=== PATIENT | female | born 1945 | race Caucasian/White ===

== ENCOUNTER → 2022-02-14 10:03 | Outpatient (BNVA) | payer MEDICARE, OTHER, SELFPAY | PROVIDERS: Referring Provider Nurse Practitioner Family; Visit Provider Podiatrist Foot & Ankle Surgery | DX: B35.1 Tinea unguium (principal) | CPT/HCPCS: 99203 ==

== ENCOUNTER → 2022-03-12 12:52 | Outpatient (BNVA) | payer MEDICARE, OTHER, SELFPAY | PROVIDERS: Visit Provider Podiatrist Foot & Ankle Surgery | DX: B35.1 Tinea unguium (principal); L60.0 Ingrowing nail | CPT/HCPCS: 11730; 11750; 99213 ==

== ENCOUNTER 2022-04-09 08:54 | Outpatient (CLI) | payer MEDICARE, OTHER, SELFPAY ==
--- NOTE | 2022-04-09 09:00 | MM_ITS ---
WS: [id number] BILATERAL SCREENING DIGITAL TOMOSYNTHESIS MAMMOGRAM WITH CAD HISTORY: SCREENING COMPARISON: 03/07/2020 and 08/12/2018 Bilateral CC and MLO views with tomosynthesis and synthetic mammography submitted. Computer aided det ection analyzed. Breast composition: There are scattered areas of fibroglandular density. No suspicious masses, microc alcifications or architectural distortion. Stable fibroglandular pattern. Benign breast arterial calc ifications. MM/[place] [id number] IMPRESSION: BI-RADS: 2-Benign FOLLOW UP: 1 Year Follow-up
== END 2022-04-09 08:55 | disposition home or self-care (01) ==
LOC: RAD 08:54
PROVIDERS: Visit Provider Family Medicine
DX: Z12.31 Encounter for screening mammogram for malignant neoplasm of breast (principal)
CPT/HCPCS: 77063; 77067

== ENCOUNTER → 2023-09-15 11:52 | Outpatient (BNVA) | payer MEDICARE, OTHER, SELFPAY | PROVIDERS: PCP Family Medicine; Referring Provider Family Medicine; Visit Provider Internal Medicine Cardiovascular Disease | DX: R00.1 Bradycardia, unspecified (principal); I49.8 Other specified cardiac arrhythmias; I25.118 Atherosclerotic heart disease of native coronary artery with other forms of angina pectoris; I12.9 Hypertensive chronic kidney disease with stage 1 through stage 4 chronic kidney disease, or unspecified chronic kidney disease; E78.5 Hyperlipidemia, unspecified; E03.9 Hypothyroidism, unspecified; N18.31 Chronic kidney disease, stage 3a; R94.31 Abnormal electrocardiogram [ECG] [EKG] | CPT/HCPCS: 93005; 99204 ==

== ENCOUNTER → 2023-10-10 10:05 | Outpatient (BNVA) | payer MEDICARE, OTHER, SELFPAY | PROVIDERS: PCP Family Medicine; Visit Provider Clinical Nurse Specialist Adult Health | DX: J06.9 Acute upper respiratory infection, unspecified (principal) | CPT/HCPCS: 87400 ==

== ENCOUNTER → 2023-11-26 07:30 | Outpatient (BNVA) | payer MEDICARE, OTHER, SELFPAY | PROVIDERS: PCP Family Medicine; Visit Provider Family Medicine | DX: N18.31 Chronic kidney disease, stage 3a (principal); E03.9 Hypothyroidism, unspecified; E78.5 Hyperlipidemia, unspecified | CPT/HCPCS: 80053; 80061; 84443 ==

== ENCOUNTER → 2024-03-16 10:05 | Outpatient (BNVA) | payer MEDICARE, OTHER, SELFPAY | PROVIDERS: PCP Family Medicine; Visit Provider Internal Medicine Cardiovascular Disease | DX: I25.10 Atherosclerotic heart disease of native coronary artery without angina pectoris (principal); I10 Essential (primary) hypertension; E78.5 Hyperlipidemia, unspecified; E03.9 Hypothyroidism, unspecified | CPT/HCPCS: 99214 ==

== ENCOUNTER → 2024-03-30 07:54 | Outpatient (BNVA) | payer MEDICARE, OTHER, SELFPAY | PROVIDERS: PCP Family Medicine; Referring Provider Nurse Practitioner Family; Visit Provider Nurse Practitioner Family | DX: L71.0 Perioral dermatitis (principal); L57.0 Actinic keratosis; L82.0 Inflamed seborrheic keratosis; L30.4 Erythema intertrigo; S50.901A Unspecified superficial injury of right elbow, initial encounter; X58.XXXA Exposure to other specified factors, initial encounter; I83.93 Asymptomatic varicose veins of bilateral lower extremities | CPT/HCPCS: 17000; 17110; 99203 ==

== ENCOUNTER 2024-06-10 14:06 | Outpatient (CLI) | payer MEDICARE, OTHER, SELFPAY ==
--- NOTE | 2024-06-10 14:13 | USR_ITS ---
PROCEDURE INFORMATION: Exam: US Soft Tissue Head and Neck, Thyroid Exam date and time: 06/10/2024 2:34 PM Age: 79 years old Clinical indication: Condition or disease; Other: Nodule; Additional info: Thyroid nodule TECHNIQUE: Imaging protocol: Real-time ultrasound scan of the neck with image documentation. Exam focused on the thyroid. COMPARISON: No relevant prior studies available. FINDINGS: The right lobe measures 4.5 x 1.4 x 1.4 cm. The left lobe measures 2.5 x 1.1 x 1.4 cm. The isthmus measures about 2 mm. There is a very questionable isoechoic nodular focus in the upper midpole region of the right lobe with a tiny anechoic focus on the margin which could represent a cyst. It is uncertain whether this represents a true nodule or just lobular thyroid tissue. It has poorly defined margins. It measures 0.9 x 0.9 x 0.6 cm. Otherwise unremarkable exam. US/US thyroid [id number] IMPRESSION: Benign-appearing nodular isoechoic focus in the right lobe as described above. This may not represent a true nodule.
== END 2024-06-10 14:07 | disposition home or self-care (01) ==
LOC: RAD 14:10
PROVIDERS: PCP Family Medicine; Visit Provider Family Medicine
DX: E04.1 Nontoxic single thyroid nodule (principal); R93.89 Abnormal findings on diagnostic imaging of other specified body structures
CPT/HCPCS: 76536

== ENCOUNTER → 2024-09-14 08:36 | Outpatient (BNVA) | payer MEDICARE, OTHER, SELFPAY | PROVIDERS: PCP Family Medicine; Visit Provider Nurse Practitioner Family | DX: I12.9 Hypertensive chronic kidney disease with stage 1 through stage 4 chronic kidney disease, or unspecified chronic kidney disease (principal); N18.9 Chronic kidney disease, unspecified; E78.5 Hyperlipidemia, unspecified; E03.9 Hypothyroidism, unspecified; G25.0 Essential tremor; Z79.01 Long term (current) use of anticoagulants; Z95.5 Presence of coronary angioplasty implant and graft | CPT/HCPCS: 99214 ==

== ENCOUNTER 2024-10-21 10:20 | Outpatient (CLI) | payer MEDICARE, OTHER, SELFPAY ==
--- NOTE | 2024-10-21 | ECG_ITS ---
[facility] 2024[facility]21 Pat Name: Suzie Muir Department: Room: Gender: Female Information Systems Manager: : 1945 Requested By: Goyo James Order Number: [id number] Ho MD: SHAKEEL FLAHERTY Interpretive Statements Lung unchanged pre/post procedure; Intraprocedure shortess of breath; Symptoms resoled by discharge NOTE: Please note that this is the electrocardiogram portion of the Lexiscan/Sestamibi stress test. The perfusion scan will be documented separately. DATA: Baseline heart rate was 58 beats per minute. Baseline blood pressure was 144/81 millimeters of mercury. Target heart rate was 142. Maximum heart rate achieved was 103. which was 72% of the predicted target heart rate. Maximum blood pressure was 144/81 millimeters of mercury. The reason for ending the test was completion of the protocol. The patient did not experience any symptoms. ELECTROCARDIOGRAM: BASELINE: Sinus rhythm. Normal axis. Otherwise, no ST-T changes suggestive of ischemia noted. No arrhythmia noted. EXERCISE: After Lexiscan injection, no ST-T changes suggestive of ischemic noted. No arrhythmia noted. CONCLUSION: Please note due to baseline abnormality of the EKG specificity and sensitivity of the EKG portion of LexiScan MIBI stress test will be low 1. EKG not suggestive of ischemia 2. Lexiscan injection unremarkable. 3. Perfusion scan will be documented separately. Electronically Signed On 10-30-2024 23:19:55 CDT by SHAKEEL FLAHERTY [email or web address]
[2024-10-21 10:42] VITALS: BMI 26.6
--- NOTE | 2024-10-21 10:46 | NMCV_ITS ---
NM kadie perf SPECT r/s* [id number] [place] n[place] Age: 79 Gender: F : 1945 Exam Date: 10/21/2024 11:39 Ordering Phys: Goyo James Technologist: VENKATA Valdivia Exam Location: [facility] Indications: cp STRESS TEST Please see separate stress test report in [facility] for full findings IMAGE PROTOCOL Rest/Stress 1 Lexiscan Day Radiopharmaceutical Dose (mCi) Administration Site Administered by Rest: Tc-99m 10.7 IV Noelle Adam, FUEL YARD OPERATOR Sestamibi Stress:Tc-99m 32.8 IV Noelle Lynchgle, FUEL YARD OPERATOR Sestamibi Rest: 21-Oct-2024 60 Discovery 630 Stress: 21-Oct-2024 30 Discovery 630 0.4mg Lexiscan. Images obtained in supine and prone position. SPECT RESULTS Technical Quality: Good Raw Data Analysis: Normal Image Corrections: No attenuation or motion correction applied Summed Stress Score: 5 Summed Rest Score: 3 Summed Difference Score: 2 PERFUSION FINDINGS Small area of fixed perfusion defect noted in the apex of the left ventricle which is possibly due to apical thinning artifact in the absence of wall motion abnormality. FUNCTIONAL RESULTS (calculated via Gated SPECT) Stress Image LV EF (%): 73 Stress EDV (mL):100 TID: 0.81 Stress ESV (mL):27 FUNCTIONAL FINDINGS: There is normal left ventricular systolic function. IMPRESSIONS Myocardial perfusion imaging is normal. Jeni Becerra MD (Electronically Signed) Final Date: 29 October 2024 19:19 S
[2024-10-21] MEDS: regadenoson 0.4 Mg/5 ml Syringe IVP (12:06)
[2024-10-21 12:20] VITALS: BP 140/70; PULSE 75
== END 2024-10-21 10:21 | disposition home or self-care (01) ==
LOC: CDL 10:23
PROVIDERS: PCP Family Medicine; Visit Provider Family Medicine
DX: I25.118 Atherosclerotic heart disease of native coronary artery with other forms of angina pectoris (principal); R06.09 Other forms of dyspnea
CPT/HCPCS: 36415; 78452; 93017; 96374; A9500; J2785

== ENCOUNTER → 2025-03-16 11:10 | Outpatient (BNVA) | payer MEDICARE, OTHER, SELFPAY | PROVIDERS: PCP Family Medicine; Visit Provider Internal Medicine Cardiovascular Disease | DX: R55 Syncope and collapse (principal); I25.10 Atherosclerotic heart disease of native coronary artery without angina pectoris; I10 Essential (primary) hypertension; E78.5 Hyperlipidemia, unspecified; E03.9 Hypothyroidism, unspecified; Z95.5 Presence of coronary angioplasty implant and graft | CPT/HCPCS: 99214 ==

== ENCOUNTER → 2025-03-31 07:57 | Outpatient (BNVA) | payer MEDICARE, OTHER, SELFPAY | PROVIDERS: PCP Family Medicine; Visit Provider Nurse Practitioner Family | DX: L81.4 Other melanin hyperpigmentation (principal); R23.3 Spontaneous ecchymoses; L57.8 Other skin changes due to chronic exposure to nonionizing radiation; X32.XXXA Exposure to sunlight, initial encounter; Z12.83 Encounter for screening for malignant neoplasm of skin | CPT/HCPCS: 99213 ==